=== PATIENT | female | born 1955 | race Caucasian/White ===

== ENCOUNTER → 2022-11-23 07:38 | Outpatient (CLI) | payer MEDICARE, SELFPAY ==
[2022-11-23 08:40] LABS: Influenza A - CEPHEID Flu A NEGATIVE (NEGATIVE); Influenza B - CEPHEID Flu B NEGATIVE (NEGATIVE); Respiratory Syncytial Virus Negative (Negative)
[2022-11-23 08:42] LABS: COVID-19 CEPHEID 4-PLEX PCR POSITIVE (Negative)
== END ==
PROVIDERS: Visit Provider Nurse Practitioner Family
DX: R05.9 Cough, unspecified (principal); R09.81 Nasal congestion; R53.83 Other fatigue
CPT/HCPCS: 0241U

== ENCOUNTER → 2022-11-23 07:40 | Outpatient (CLI) | payer MEDICARE, SELFPAY ==
--- NOTE | 2022-11-23 07:43 | DI.RAD.S_ITS ---
PROCEDURE: XR CHEST 2V INDICATIONS: Cough TECHNIQUE: 2 views of the chest were acquired. COMPARISON: None. FINDINGS: Surgical changes and devices: Gastric lap band Lungs and pleura: Bibasilar hazy and interstitial opacities. Pulmonary vasculature appears congested. No large pleural effusion. No pneumothorax. Mediastinum: Cardiac silhouette is enlarged. Bones and chest wall: No suspicious bony abnormalities. Soft tissues appear unremarkable. IMPRESSION: Findings compatible with mild fluid overload/CHF. Bibasilar opacities probably represent a combination of atelectasis and edema, aspiration or pneumonia difficult to exclude. Dictated by: Victor Hugo Corbett M.D. on 11/23/2022 at 9:49 Approved by: Victor Hugo Corbett M.D. on 11/23/2022 at 9:53
== END ==
PROVIDERS: Referring Provider Nurse Practitioner Family; Visit Provider Nurse Practitioner Family
DX: R05.9 Cough, unspecified (principal); R09.81 Nasal congestion; R53.83 Other fatigue
CPT/HCPCS: 0241U; 71046